=== PATIENT | female | born 1960 | race Caucasian/White ===

== ENCOUNTER 2020-02-27 15:30 | Emergency (ER) | payer OTHER, SELFPAY ==
[2020-02-27] VITALS (27 sets, daily range): BP systolic 120–144; BP diastolic 60–74; PULSE 80–94; RESP 12–24; TEMP 36.1; O2SAT 92–99
--- NOTE | 2020-02-27 15:56 | ED_ITS ---
HPI - Abdominal Pain <Gloria Jeffrey DO - Last Filed: 02/28/20 07:17> General Chief Complaint: Abdominal Pain Stated Complaint: JAUNDICE ABD PAIN Time Seen by Provider: 02/27/20 15:37 Source: patient and family Mode of arrival: Ambulatory Limitations: no limitations History of Present Illness HPI narrative: Patient is a 59-year-old female presents distending abdomen and jaundice. She does drink alcohol nightly at least 4-5 shots and a few beers according to her . He says that the yellowing color has been progressively getting worse over the last 1 week. He says that abdomen progressively distending over longer than that but seems bigger today. She denies any pain nausea vomiting. Her last drink was evening. She states her bowel movements have not been normal but does not really describe they are denies diarrhea or constipation. MD complaint: abdominal pain Onset (ago): week(s) Pain Consistency: constant Related Data Home Medications Medication Instructions Recorded Confirmed No Known Home Medications 02/27/20 02/27/20 Allergies Allergy/AdvReac Type Severity Reaction Status Date / Time No Known Drug Allergies Allergy Unverified 02/27/20 13:50 Review of Systems <Gloria Jeffrey DO - Last Filed: 02/28/20 07:17> Review of Systems Narrative: GENERAL: Denies chills, fatigue, malaise, fever, sweats, travel HEENT: Denies sinus pain, ear pain, sore throat, difficulty swallowing, neck pain RESPIRATORY: Denies dyspnea, cough, wheezing, hemoptysis, sputum. CARDIOVASCULAR: Denies chest pain, palpitations, orthopnea, edema GASTROINTESTINAL: See HPI : Denies dysuria, frequency, incontinence, hematuria, urinary retention, flank pain. MUSCULOSKELETAL: Denies weakness, joint pain, or bony pain SKIN: No rash, no erythema, no pruritus NEUROLOGIC: Denies weakness, dizziness, headache, numbness, change in speech, confusion PSYCHIATRIC: No concerning psychosocial issues. 12 point review of systems is negative except for those stated above and HPI Patient History <Gloria Jeffrey DO - Last Filed: 02/28/20 07:17> Medical History Alcohol use (Chronic) Ascites (Acute) Chicken pox (Acute) Measles (Acute) Mumps (Acute) Painless jaundice (Acute) Social History marital status: pets and animals: Yes education level: high school Smoking Status: Former smoker during the past year weight has: decreased > 10 lbs Smoking Status: Former smoker Exam <Gloria Jeffrey DO - Last Filed: 02/28/20 07:17> Initial Vital Signs Initial Vital Signs: Vital Signs Temperature 96.9 F L 02/27/20 15:35 Pulse Rate 85 02/27/20 15:35 Respiratory Rate 22 02/27/20 15:35 Blood Pressure 144/70 H 02/27/20 15:35 Pulse Oximetry 97 02/27/20 15:35 GENERAL: Jaundice well-appearing female and in no acute distress. HEENT: Head atraumatic,EOMI, pupils reactive, icterus, face symmetric, moist mucous membranes CARDIOVASCULAR: Regular rate and rhythm without murmurs, rubs or gallops. RESPIRATORY: Breath sounds equal bilaterally, no wheezes rales or rhonchi. ABDOMEN: Soft, distended, positive fluid wave nontender positive bowel sounds EXTREMITIES: Normal range of motion, no clubbing or edema. Neurovascularly intact NEUROLOGICAL: Alert and oriented x4.Normal gait and speech. SKIN: Warm, dry, no laceration, no petechiae, no rashes or lesions. <Tom Villatoro MD - Last Filed: 02/28/20 04:59> Initial Vital Signs Initial Vital Signs: Vital Signs Temperature 96.9 F L 02/27/20 15:35 Pulse Rate 85 02/27/20 15:35 Respiratory Rate 22 02/27/20 15:35 Blood Pressure 144/70 H 02/27/20 15:35 Pulse Oximetry 97 02/27/20 15:35 Course <Gloria Jeffrey DO - Last Filed: 02/28/20 07:17> Orders Ordered: Discontinued Medications Sodium Chloride (Normal Saline 0.9%) 1,000 mls @ 100 mls/hr IV CONT TRINA Last Infusion: 02/28/20 04:07 Dose: 0 mls/hr Documented by: Infusion: 02/27/20 21:18 Dose: 100 mls/hr Documented by: Infusion: 02/27/20 20:35 Dose: 0 mls/hr Documented by: Infusion: 02/27/20 17:50 Dose: 100 mls/hr Documented by: Admin: 02/27/20 17:26 Dose: 100 mls/hr Documented by: PRIYA Potassium Chloride 40 meq/ (Sodium Chloride) 520 mls @ 130 mls/hr IV NOW ONE Stop: 02/27/20 20:58 Last Infusion: 02/27/20 22:14 Dose: 0 mls/hr Documented by: RACHEL Cosigned by: HILARY Infusion: 02/27/20 21:18 Dose: 130 mls/hr Documented by: PRIYA Cosigned by: RACHEL Infusion: 02/27/20 20:41 Dose: 0 mls/hr Documented by: RACHEL Cosakila by: RAJANI Infusion: 02/27/20 17:49 Dose: 130 mls/hr Documented by: PRIYA Cosigned by: RACHEL Admin: 02/27/20 17:27 Dose: 130 mls/hr Documented by: PRIYA Cosigned by: HILARY Vital Signs Vital signs: Vital Signs - 8 hr 02/27/20 23:30 02/28/20 00:07 02/28/20 00:30 Pulse Rate 81 79 Respiratory Rate 16 27 H 17 Blood Pressure 123/66 Pulse Oximetry 02/28/20 01:00 02/28/20 01:30 02/28/20 02:00 Pulse Rate 77 77 81 Respiratory Rate 16 16 21 Blood Pressure Pulse Oximetry 02/28/20 02:38 02/28/20 03:00 02/28/20 03:30 Pulse Rate 85 81 79 Respiratory Rate 24 18 17 Blood Pressure 141/69 H Pulse Oximetry 90 L 02/28/20 04:00 02/28/20 04:30 Pulse Rate 82 80 Respiratory Rate 20 19 Blood Pressure Pulse Oximetry <Tom Villatoro MD - Last Filed: 02/28/20 04:59> Course Course Narrative: Time 4:39 a.m.. No new events since sign out for patient to be transferred to [address], blood cultures completed and holding on antibiotics as requested by receiving Hospital. Spoke with with patient and family for update. EMS here now. Orders Ordered: Discontinued Medications Sodium Chloride (Normal Saline 0.9%) 1,000 mls @ 100 mls/hr IV CONT TRINA Last Infusion: 02/28/20 04:07 Dose: 0 mls/hr Documented by: Infusion: 02/27/20 21:18 Dose: 100 mls/hr Documented by: Infusion: 02/27/20 20:35 Dose: 0 mls/hr Documented by: Infusion: 02/27/20 17:50 Dose: 100 mls/hr Documented by: Admin: 02/27/20 17:26 Dose: 100 mls/hr Documented by: PRIYA Potassium Chloride 40 meq/ (Sodium Chloride) 520 mls @ 130 mls/hr IV NOW ONE Stop: 02/27/20 20:58 Last Infusion: 02/27/20 22:14 Dose: 0 mls/hr Documented by: RACHEL Cosigned by: HILARY Infusion: 02/27/20 21:18 Dose: 130 mls/hr Documented by: PRIYA Cosigned by: RACHEL Infusion: 02/27/20 20:41 Dose: 0 mls/hr Documented by: RACHEL Cosigned by: RAJANI Infusion: 02/27/20 17:49 Dose: 130 mls/hr Documented by: PRIYA Cosigned by: RACHEL Admin: 02/27/20 17:27 Dose: 130 mls/hr Documented by: PRIYA Cosigned by: RMARTIN Vital Signs Vital signs: Vital Signs - 8 hr 02/27/20 23:30 02/28/20 00:07 02/28/20 00:30 Pulse Rate 81 79 Respiratory Rate 16 27 H 17 Blood Pressure 123/66 Pulse Oximetry 02/28/20 01:00 02/28/20 01:30 02/28/20 02:00 Pulse Rate 77 77 81 Respiratory Rate 16 16 21 Blood Pressure Pulse Oximetry 02/28/20 02:38 02/28/20 03:00 02/28/20 03:30 Pulse Rate 85 81 79 Respiratory Rate 24 18 17 Blood Pressure 141/69 H Pulse Oximetry 90 L 02/28/20 04:00 02/28/20 04:30 Pulse Rate 82 80 Respiratory Rate 20 19 Blood Pressure Pulse Oximetry MDM - Abdominal Pain <Gloria Jeffery DO - Last Filed: 02/28/20 07:17> Lab Data Attestation: I reviewed the patient's lab results. Lab results narrative: Labs were ordered as an outpatient and are not being carried over into this chart but are in [facility] Sodium 114, potassium 2.9, chloride 78, carbon dioxide 25, BUN 33, creatinine 2.2 to, glucose 110, hemoglobin A1c 4.2, lactate 2.8, calcium 9.2, total bilirubin 23.9, AST 162, ALT, 78, alk phos 278, ammonia 31, total protein 7.1, albumin 3.3, globulin 3.8, CA 19-9 pending Result diagrams: 02/27/20 15:07 02/27/20 20:55 Labs: Lab Results 02/27/20 02/27/20 02/27/20 Range/Units 15:07 15:46 15:46 WBC 20.0 H (4.5-11.0) X10^3/uL RBC 2.95 L (4.0-5.2) X10^6/uL Hgb 12.0 (12.0-16.0) g/dL Hct 33.7 L (36-46) % MCV 114.2 H (80-100) fL MCH 40.6 H (26-34) PG MCHC 35.6 (30-36) % RDW 15.3 H (11.6-14.8) % Plt Count 204 (150-400) X10^3/uL Neut % (Auto) 86.6 H (50-75) % Lymph % (Auto) 8.9 L (25-40) % Antelope % (Auto) 4.2 (3-14) % Eos % (Auto) 0.1 L (2-4) % Baso % (Auto) 0.2 (0-2) % Neut # (Auto) 22102 H (2345-9115) /uL Lymph # (Auto) 1800 (3133-8959) /uL Antelope # (Auto) 800 (0-900) /uL Eos # (Auto) 0 (0-450) /uL Baso # (Auto) 0 (0-100) /uL RBC Morphology Not Reportable Macrocytosis 3+ H Sodium (137-145) mmol/L Potassium (3.4-5.1) mmol/L Chloride (98-107) mmol/L Carbon Dioxide (22-32) mmol/L BUN (7-17) mg/dL Creatinine (0.52-1.04) mg/dL Estimated GFR (>60) mL/min BUN/Creatinine Ratio (6-22) Glucose (70-100) mg/dL Lactate 2.8 H (0.7-2.1) mmol/L Calcium (8.4-10.2) mg/dL Total Bilirubin (0.2-1.3) mg/dL AST (14-36) IU/L ALT (<35) IU/L Alkaline Phosphatase (38-126) U/L Total Protein (6.3-8.2) g/dL Albumin (3.5-5.0) g/dL Globulin (1.7-4.1) g/dL Albumin/Globulin Ratio (1.0-2.8) Ethyl Alcohol ( - 10) mg/dL COVID-19 PCR (Negative) Blood Type A Positive Antibody Screen Negative 02/27/20 02/27/20 02/27/20 Range/Units 17:35 18:18 18:18 WBC (4.5-11.0) X10^3/uL RBC (4.0-5.2) X10^6/uL Hgb (12.0-16.0) g/dL Hct (36-46) % MCV (80-100) fL MCH (26-34) PG MCHC (30-36) % RDW (11.6-14.8) % Plt Count (150-400) X10^3/uL Neut % (Auto) (50-75) % Lymph % (Auto) (25-40) % Antelope % (Auto) (3-14) % Eos % (Auto) (2-4) % Baso % (Auto) (0-2) % Neut # (Auto) (3670-2898) /uL Lymph # (Auto) (6609-5500) /uL Antelope # (Auto) (0-900) /uL Eos # (Auto) (0-450) /uL Baso # (Auto) (0-100) /uL RBC Morphology Macrocytosis Sodium 112 L* (137-145) mmol/L Potassium 3.0 L (3.4-5.1) mmol/L Chloride 78 L (98-107) mmol/L Carbon Dioxide 24 (22-32) mmol/L BUN 33 H (7-17) mg/dL Creatinine 2.16 H (0.52-1.04) mg/dL Estimated GFR 23.4 L (>60) mL/min BUN/Creatinine Ratio 15.3 (6-22) Glucose 107 H (70-100) mg/dL Lactate 2.4 H (0.7-2.1) mmol/L Calcium 8.7 (8.4-10.2) mg/dL Total Bilirubin 22.4 H (0.2-1.3) mg/dL AST 141 H (14-36) IU/L ALT 70 H (<35) IU/L Alkaline Phosphatase 249 H (38-126) U/L Total Protein 6.3 (6.3-8.2) g/dL Albumin 3.0 L (3.5-5.0) g/dL Globulin 3.3 (1.7-4.1) g/dL Albumin/Globulin Ratio 0.9 L (1.0-2.8) Ethyl Alcohol ( - 10) mg/dL COVID-19 PCR Negative (Negative) Blood Type Antibody Screen 02/27/20 02/27/20 02/27/20 Range/Units 18:18 20:55 20:55 WBC (4.5-11.0) X10^3/uL RBC (4.0-5.2) X10^6/uL Hgb (12.0-16.0) g/dL Hct (36-46) % MCV (80-100) fL MCH (26-34) PG MCHC (30-36) % RDW (11.6-14.8) % Plt Count (150-400) X10^3/uL Neut % (Auto) (50-75) % Lymph % (Auto) (25-40) % Antelope % (Auto) (3-14) % Eos % (Auto) (2-4) % Baso % (Auto) (0-2) % Neut # (Auto) (1435-8144) /uL Lymph # (Auto) (4463-3717) /uL Antelope # (Auto) (0-900) /uL Eos # (Auto) (0-450) /uL Baso # (Auto) (0-100) /uL RBC Morphology Macrocytosis Sodium 114 L* (137-145) mmol/L Potassium 3.9 (3.4-5.1) mmol/L Chloride 81 L (98-107) mmol/L Carbon Dioxide 23 (22-32) mmol/L BUN (7-17) mg/dL Creatinine (0.52-1.04) mg/dL Estimated GFR (>60) mL/min BUN/Creatinine Ratio (6-22) Glucose (70-100) mg/dL Lactate (0.7-2.1) mmol/L Calcium (8.4-10.2) mg/dL Total Bilirubin (0.2-1.3) mg/dL AST (14-36) IU/L ALT (<35) IU/L Alkaline Phosphatase (38-126) U/L Total Protein (6.3-8.2) g/dL Albumin (3.5-5.0) g/dL Globulin (1.7-4.1) g/dL Albumin/Globulin Ratio (1.0-2.8) Ethyl Alcohol < 10 < 10 ( - 10) mg/dL COVID-19 PCR (Negative) Blood Type Antibody Screen Imaging Data CT scan - abdomen/pelvis: Radiologist's Impression: PROCEDURE: CT ABDOMEN PELVIS WO CON INDICATIONS: distention and jaundice TECHNIQUE: After the administration of oral contrast, 5 mm thick sections acquired from the diaphragms to the symphysis. 5 mm coronal and sagittal reformats were performed. For radiation dose reduction, the following was used: automated exposure control, adjustment of mA and/or kV according to patient size. COMPARISON: None. FINDINGS: Image quality: Excellent. ABDOMEN: Lung bases: Lung bases are clear. Heart size is normal. Solid organs: Liver is prominently enlarged in size at 22 cm craniocaudad, and markedly fatty infiltrated. Gallbladder contains no visualized calcified gallstones.. Pancreas is normal in size. Spleen is normal in size. No adrenal nodules. Both kidneys are normal in size, without hydronephrosis or nephrolithiasis. Peritoneum and bowel: Bowel loops demonstrate normal wall thickness and caliber. No free air. There is mild ascites within all 4 quadrants best seen within the lower abdomen and pelvis. Nodes and vessels: No retroperitoneal or mesenteric adenopathy by size criteria. Aorta and inferior vena cava are normal in size. Miscellaneous: No ventral hernias. PELVIS: Genitourinary: Bladder wall thickness is normal. Miscellaneous: No inguinal hernias or adenopathy. Ascites is present to a aosc-nz-bkvrebal degree within the lower abdomen and pelvis. Bones: No suspicious bony lesions. No vertebral body compression fractures. IMPRESSION: Market hepatomegaly, market fatty infiltration throughout the liver. Fplh-bz-przbpjzi ascites best seen within the lower abdomen and pelvis. No mass lesions seen, hepatic insufficiency and portal hypertension appears present. Dictated by: Jean Pierre Dee M.D. on 02/27/2020 at 17:51 Approved by: Jean Pierre Dee M.D. on 02/27/2020 at 17:54 US - abdomen: Radiologist's Impression: PROCEDURE: US ABDOMEN LIMITED INDICATIONS: ASCITES TECHNIQUE: Real-time focused scanning was performed of the abdomen, with image documentation. COMPARISON: [facility], CT, CT ABDOMEN PELVIS WO CON, 02/27/2020, 17:14. FINDINGS: The liver is large at 19.5 cm craniocaudad and nodular in its margination with increased echotexture consistent with a combination of fatty infiltration and possible cirrhosis. Ascites is noted within the peritoneal space. Sludge is noted within the gallbladder lumen. No calculus is found. The bile ducts could not be well visualized nor could much of the rest of the retroperitoneum due to overlying bowel gas. IMPRESSION: Ascites, hepatic insufficiency is the likely cause, hepatomegaly, fatty infiltration likely combined with a degree of cirrhotic change is the presumed cause for the increased echotexture of the liver and its nodular margination. No sign of acute cholecystitis. Dictated by: Jean Pierre Dee M.D. on 02/27/2020 at 17:41 Approved by: Jean Pierre Dee M.D. on 02/27/2020 at 17:43 Chest x-ray: Radiologist's Impression: PROCEDURE: XR CHEST 1V INDICATIONS: elevated wbc with ascites TECHNIQUE: One view of the chest was acquired. COMPARISON: None. FINDINGS: Surgical changes and devices: None. Lungs and pleura: Lungs are clear. No pleural effusions or pneumothorax. The right hemidiaphragm is elevated, associated with hepatomegaly documented by CT scanning and ultrasound scanning earlier today. Mediastinum: Mediastinal contours appear normal. Heart size is normal. Bones and chest wall: No suspicious bony lesions. Overlying soft tissues appear unremarkable. IMPRESSION: No pneumonia found. Elevated right hemidiaphragm associated with prominent hepatomegaly seen on CT scanning earlier today. Dictated by: Jean Pierre Dee M.D. on 02/27/2020 at 19:17 Approved by: Jean Pierre Dee M.D. on 02/27/2020 at 19:18 ECG Data Attestation: I personally reviewed and interpreted this ECG as follows: Prior ECG tracings: not available for review Interpretation: Normal sinus rhythm with artifact rate 84 p.r. interval 178 QRS [address] changes MDM Narrative Medical decision making narrative: The patient is found to have severe hyponatremia with 114 however is asymptomatic thought to be chronic. She has new onset ascites with cirrhosis likely alcoholic cirrhosis. She does not have any signs of withdrawal at this time. Creatinine is also elevated 2.2 signs and symptoms consistent with hepatic renal syndrome. She is otherwise hemodynamically stable. She is afebrile but does have leukocytosis of 20, she has no abdominal pain at this time low suspicion for SBP. The patient is requiring higher level of care due to multiple issues needing GI, Nephrology and other resources. Patient is a [place] patient [address] apparently does have beds but waiting for an accepting physician and a bed to be available Signed out to Dr. Villatoro <Tom Villatoro MD - Last Filed: 02/28/20 04:59> Lab Data Labs: Lab Results 02/27/20 02/27/20 02/27/20 Range/Units 15:07 15:46 15:46 WBC 20.0 H (4.5-11.0) X10^3/uL RBC 2.95 L (4.0-5.2) X10^6/uL Hgb 12.0 (12.0-16.0) g/dL Hct 33.7 L (36-46) % MCV 114.2 H (80-100) fL MCH 40.6 H (26-34) PG MCHC 35.6 (30-36) % RDW 15.3 H (11.6-14.8) % Plt Count 204 (150-400) X10^3/uL Neut % (Auto) 86.6 H (50-75) % Lymph % (Auto) 8.9 L (25-40) % Antelope % (Auto) 4.2 (3-14) % Eos % (Auto) 0.1 L (2-4) % Baso % (Auto) 0.2 (0-2) % Neut # (Auto) 06907 H (4934-6827) /uL Lymph # (Auto) 1800 (3953-9954) /uL Antelope # (Auto) 800 (0-900) /uL Eos # (Auto) 0 (0-450) /uL Baso # (Auto) 0 (0-100) /uL RBC Morphology Not Reportable Macrocytosis 3+ H Sodium (137-145) mmol/L Potassium (3.4-5.1) mmol/L Chloride (98-107) mmol/L Carbon Dioxide (22-32) mmol/L BUN (7-17) mg/dL Creatinine (0.52-1.04) mg/dL Estimated GFR (>60) mL/min BUN/Creatinine Ratio (6-22) Glucose (70-100) mg/dL Lactate 2.8 H (0.7-2.1) mmol/L Calcium (8.4-10.2) mg/dL Total Bilirubin (0.2-1.3) mg/dL AST (14-36) IU/L ALT (<35) IU/L Alkaline Phosphatase (38-126) U/L Total Protein (6.3-8.2) g/dL Albumin (3.5-5.0) g/dL Globulin (1.7-4.1) g/dL Albumin/Globulin Ratio (1.0-2.8) Ethyl Alcohol ( - 10) mg/dL COVID-19 PCR (Negative) Blood Type A Positive Antibody Screen Negative 02/27/20 02/27/20 02/27/20 Range/Units 17:35 18:18 18:18 WBC (4.5-11.0) X10^3/uL RBC (4.0-5.2) X10^6/uL Hgb (12.0-16.0) g/dL Hct (36-46) % MCV (80-100) fL MCH (26-34) PG MCHC (30-36) % RDW (11.6-14.8) % Plt Count (150-400) X10^3/uL Neut % (Auto) (50-75) % Lymph % (Auto) (25-40) % Antelope % (Auto) (3-14) % Eos % (Auto) (2-4) % Baso % (Auto) (0-2) % Neut # (Auto) (9491-8683) /uL Lymph # (Auto) (2136-8582) /uL Antelope # (Auto) (0-900) /uL Eos # (Auto) (0-450) /uL Baso # (Auto) (0-100) /uL RBC Morphology Macrocytosis Sodium 112 L* (137-145) mmol/L Potassium 3.0 L (3.4-5.1) mmol/L Chloride 78 L (98-107) mmol/L Carbon Dioxide 24 (22-32) mmol/L BUN 33 H (7-17) mg/dL Creatinine 2.16 H (0.52-1.04) mg/dL Estimated GFR 23.4 L (>60) mL/min BUN/Creatinine Ratio 15.3 (6-22) Glucose 107 H (70-100) mg/dL Lactate 2.4 H (0.7-2.1) mmol/L Calcium 8.7 (8.4-10.2) mg/dL Total Bilirubin 22.4 H (0.2-1.3) mg/dL AST 141 H (14-36) IU/L ALT 70 H (<35) IU/L Alkaline Phosphatase 249 H (38-126) U/L Total Protein 6.3 (6.3-8.2) g/dL Albumin 3.0 L (3.5-5.0) g/dL Globulin 3.3 (1.7-4.1) g/dL Albumin/Globulin Ratio 0.9 L (1.0-2.8) Ethyl Alcohol ( - 10) mg/dL COVID-19 PCR Negative (Negative) Blood Type Antibody Screen 02/27/20 02/27/20 02/27/20 Range/Units 18:18 20:55 20:55 WBC (4.5-11.0) X10^3/uL RBC (4.0-5.2) X10^6/uL Hgb (12.0-16.0) g/dL Hct (36-46) % MCV (80-100) fL MCH (26-34) PG MCHC (30-36) % RDW (11.6-14.8) % Plt Count (150-400) X10^3/uL Neut % (Auto) (50-75) % Lymph % (Auto) (25-40) % Antelope % (Auto) (3-14) % Eos % (Auto) (2-4) % Baso % (Auto) (0-2) % Neut # (Auto) (0916-5014) /uL Lymph # (Auto) (0302-5974) /uL Antelope # (Auto) (0-900) /uL Eos # (Auto) (0-450) /uL Baso # (Auto) (0-100) /uL RBC Morphology Macrocytosis Sodium 114 L* (137-145) mmol/L Potassium 3.9 (3.4-5.1) mmol/L Chloride 81 L (98-107) mmol/L Carbon Dioxide 23 (22-32) mmol/L BUN (7-17) mg/dL Creatinine (0.52-1.04) mg/dL Estimated GFR (>60) mL/min BUN/Creatinine Ratio (6-22) Glucose (70-100) mg/dL Lactate (0.7-2.1) mmol/L Calcium (8.4-10.2) mg/dL Total Bilirubin (0.2-1.3) mg/dL AST (14-36) IU/L ALT (<35) IU/L Alkaline Phosphatase (38-126) U/L Total Protein (6.3-8.2) g/dL Albumin (3.5-5.0) g/dL Globulin (1.7-4.1) g/dL Albumin/Globulin Ratio (1.0-2.8) Ethyl Alcohol < 10 < 10 ( - 10) mg/dL COVID-19 PCR (Negative) Blood Type Antibody Screen Discharge Plan Departure Patient Disposition: [facility] Clinical Impression: Hepatorenal syndrome Alcoholic cirrhosis Qualifiers: Ascites presence: unspecified Qualified Code(s): K70.30 - Alcoholic cirrhosis of liver without ascites Discharge Date/Time: 02/28/20 05:00 Prescriptions: No Action No Known Home Medications RF: 0 Referrals: Taye Monson MD [Primary Care Provider] -
[2020-02-27 16:08] LABS: Add Manual Diff / Slide Review NO; Basophils Absolute Auto 0 /uL (0-100); Basophils Percent Auto 0.2 % (0-2); Eosinophils Absolute Auto 0 /uL (0-450); Eosinophils Percent Auto 0.1 % (2-4); Hematocrit 33.7 % (36-46); Lymphocytes Absolute Auto 1800 /uL (1100-4500); Lymphocytes Percent Auto 8.9 % (25-40); Mean Corpuscular HGB Conc 35.6 % (30-36); Mean Corpuscular Hemoglobin 40.6 PG (26-34); Mean Corpuscular Volume 114.2 fL (80-100); Monocytes Absolute Auto 800 /uL (0-900); Monocytes Percent Auto 4.2 % (3-14); Neutrophils Absolute Auto 17400 /uL (1500-7000); Neutrophils Percent Auto 86.6 % (50-75); Platelet Count 204 X10^3/uL (150-400); Red Blood Cell Count 2.95 X10^6/uL (4.0-5.2); Red Cell Distribution Width 15.3 % (11.6-14.8)
--- NOTE | 2020-02-27 16:16 | DI.US.S_ITS ---
PROCEDURE: US ABDOMEN LIMITED INDICATIONS: ASCITES TECHNIQUE: Real-time focused scanning was performed of the abdomen, with image documentation. COMPARISON: [facility], CT, CT ABDOMEN PELVIS WO CON, 02/27/2020, 17:14. FINDINGS: The liver is large at 19.5 cm craniocaudad and nodular in its margination with increased echotexture consistent with a combination of fatty infiltration and possible cirrhosis. Ascites is noted within the peritoneal space. Sludge is noted within the gallbladder lumen. No calculus is found. The bile ducts could not be well visualized nor could much of the rest of the retroperitoneum due to overlying bowel gas. IMPRESSION: Ascites, hepatic insufficiency is the likely cause, hepatomegaly, fatty infiltration likely combined with a degree of cirrhotic change is the presumed cause for the increased echotexture of the liver and its nodular margination. No sign of acute cholecystitis. Dictated by: Jean Pierre Dee M.D. on 02/27/2020 at 17:41 Approved by: Jean Pierre Dee M.D. on 02/27/2020 at 17:43
[2020-02-27 16:17] LABS: Lactate (Lactic Acid) 2.8 mmol/L (0.7-2.1)
[2020-02-27 16:21] LABS: Macrocytosis 3+
[2020-02-27] MEDS: SODIUM CHLORIDE 0.9% 1,000 ML 100 ML IV (17:26)
[2020-02-27] MEDS: POTASSIUM CHLORIDE 40 MEQ in SODIUM CHLORIDE 0.9% 500 ML 130 ML IV (17:27)
[2020-02-27 17:52] LABS: Reflexed Lactate in 2 Hours Y
[2020-02-27 18:01] LABS: COVID19 -Nasal RAPID Negative (Negative)
--- NOTE | 2020-02-27 18:28 | DI.RAD.S_ITS ---
PROCEDURE: XR CHEST 1V INDICATIONS: elevated wbc with ascites TECHNIQUE: One view of the chest was acquired. COMPARISON: None. FINDINGS: Surgical changes and devices: None. Lungs and pleura: Lungs are clear. No pleural effusions or pneumothorax. The right hemidiaphragm is elevated, associated with hepatomegaly documented by CT scanning and ultrasound scanning earlier today. Mediastinum: Mediastinal contours appear normal. Heart size is normal. Bones and chest wall: No suspicious bony lesions. Overlying soft tissues appear unremarkable. IMPRESSION: No pneumonia found. Elevated right hemidiaphragm associated with prominent hepatomegaly seen on CT scanning earlier today. Dictated by: Jean Pierre Dee M.D. on 02/27/2020 at 19:17 Approved by: Jean Pierre Dee M.D. on 02/27/2020 at 19:18
[2020-02-27 18:37] LABS: Alanine Aminotransferase 70 IU/L (<35); Albumin Globulin Ratio 0.9 (1.0-2.8); Alkaline Phosphatase 249 U/L (38-126); Aspartate Aminotransferase 141 IU/L (14-36); BUN Creatinine Ratio 15.3 (6-22); Bilirubin Total 22.4 mg/dL (0.2-1.3); Blood Urea Nitrogen 33 mg/dL (7-17); Calcium 8.7 mg/dL (8.4-10.2); Carbon Dioxide 24 mmol/L (22-32); Chloride 78 mmol/L (98-107); Estimated Glomerular Filt Rate 23.4 mL/min (>60); Globulin 3.3 g/dL (1.7-4.1); Glucose 107 mg/dL (70-100); HEMOLYSIS < 15 (0-50); Lactate 2HR (Lactic Acid Rflx) 2.4 mmol/L (0.7-2.1); Total Protein 6.3 g/dL (6.3-8.2)
[2020-02-27 18:51] LABS: Sodium 112 mmol/L (137-145)
[2020-02-27 18:59] LABS: Ethanol (ETOH) < 10 mg/dL
--- NOTE | 2020-02-27 19:15 | PC.NURSE ---
Pt taken to the bathroom to pee, hat in garbage.
--- NOTE | 2020-02-27 19:17 | PC.NURSE ---
Hat in garbage, no urine sample obtained
[2020-02-27 21:19] LABS: Ethanol (ETOH) < 10 mg/dL
[2020-02-27 21:29] LABS: Carbon Dioxide 23 mmol/L (22-32); Chloride 81 mmol/L (98-107); HEMOLYSIS 18 (0-50); Potassium 3.9 mmol/L (3.4-5.1)
[2020-02-27 21:34] LABS: Sodium 114 mmol/L (137-145)
[2020-02-28] VITALS (10 sets, daily range): BP systolic 141; BP diastolic 69; PULSE 77–85; RESP 16–27; O2SAT 90
== END 2020-02-28 05:00 | disposition short-term general hospital (02) ==
PROVIDERS: Emergency Medicine; Emergency Provider Emergency Medicine; PCP Family Medicine
DX: K76.7 Hepatorenal syndrome (principal); K70.30 Alcoholic cirrhosis of liver without ascites; D72.829 Elevated white blood cell count, unspecified; R18.8 Other ascites
CPT/HCPCS: 36415; 71045; 74176; 76705; 80051; 80053; 80320; 82140; 83036; 83605; 85025; 85610; 85730; 86301; 86803; 86850; 86900; 86901; 87040; 87635; 93005; 93010; 96360; 96361; 99285; J3480

== ENCOUNTER 2024-08-22 12:13 | Emergency (ER) | payer SELFPAY ==
[2024-08-22] VITALS (23 sets, daily range): BP systolic 134–186; BP diastolic 63–108; PULSE 81–100; RESP 14–26; TEMP 36.8; O2SAT 94–98; BMI 24.5
--- NOTE | 2024-08-22 12:31 | PC.NURSE ---
Called patient for triage but they were in the restroom.
--- NOTE | 2024-08-22 12:57 | EKG_ITS ---
[address] [address] Test Date: 2024-08-22 Pat Name: Georgette Mckeon Department: Room: Gender: Female Dispatch Lead: CHELSEA : 1960 Requested By: Order Number: [id number] Reading MD: Artur Hassan MD Measurements Intervals [place] Rate: 99 P: -3 OK: 138 QRS: 12 QRSD: 68 T: 28 QT: 384 QTc: 492 Interpretive Statements Normal sinus rhythm Cannot rule out Anterior infarct , age undetermined Electronically Signed On 08-24-2024 8:22:50 PDT by Artur Hassan MD
[2024-08-22 13:38] LABS: Add Manual Diff / Slide Review NO; Basophils Absolute Auto 100 /uL (0-100); Basophils Percent Auto 1.1 % (0-2); Eosinophils Absolute Auto 0 /uL (0-450); Eosinophils Percent Auto 0.4 % (2-4); Hematocrit 39.5 % (36-46); Hemoglobin 13.7 g/dL (12.0-16.0); Lymphocytes Absolute Auto 1100 /uL (1100-4500); Lymphocytes Percent Auto 18.2 % (25-40); Mean Corpuscular HGB Conc 34.7 % (30-36); Mean Corpuscular Hemoglobin 34.1 PG (26-34); Mean Corpuscular Volume 98.4 fL (80-100); Monocytes Absolute Auto 400 /uL (0-900); Monocytes Percent Auto 7.3 % (3-14); Neutrophils Absolute Auto 4500 /uL (1500-7000); Platelet Count 59 X10^3/uL (150-400); Red Blood Cell Count 4.02 X10^6/uL (4.0-5.2); Red Cell Distribution Width 14.7 % (11.6-14.8); White Blood Cell Count 6.1 X10^3/uL (4.5-11.0)
[2024-08-22 13:45] LABS: Alanine Aminotransferase 36 IU/L (<35); Albumin 4.6 g/dL (3.5-5.0); Albumin Globulin Ratio 1.1 (1.0-2.8); Alkaline Phosphatase 151 U/L (38-126); Aspartate Aminotransferase 91 IU/L (14-36); Bilirubin Total 9.9 mg/dL (0.2-1.3); Blood Urea Nitrogen 9 mg/dL (7-17); Calcium 10.4 mg/dL (8.4-10.2); Carbon Dioxide 20 mmol/L (22-32); Chloride 103 mmol/L (98-107); Estimated Glomerular Filt Rate > 60 mL/min (>60); Globulin 4.1 g/dL (1.7-4.1); Glucose 101 mg/dL (80-110); HEMOLYSIS < 15 (0-50); Lipase 95 U/L (23-300); Potassium 3.8 mmol/L (3.4-5.1); Sodium 136 mmol/L (137-145); Total Protein 8.7 g/dL (6.3-8.2)
[2024-08-22 14:21] LABS: Amorphous Sediment Urine 1+; Bacteria Urine Few (2-10); Mucus Urine 2+ (Negative); RBC Urine 1-5/HPF (0-5/HPF); Squamous Epithelial Cell Urine 5-10 /HPF (0-5/HPF); Transitional Epi Cells Urine 1-5/HPF (0-5/HPF); Urine Volume 10mL (spun); WBC Urine 5-10/HPF (0-5/HPF)
[2024-08-22 14:22] LABS: Culture Indicated Urine Specimen Cultured; Ictotest Urine Positive (Negative)
--- NOTE | 2024-08-22 14:35 | ED_ITS ---
HPI - Abdominal Pain <Tom Villatoro MD - Last Filed: 08/23/24 12:49> General Chief Complaint: Abdominal Pain Stated Complaint: Vomiting x3 dys, hernia Time Seen by Provider: 08/22/24 13:12 Source: patient Mode of arrival: Ambulatory History of Present Illness HPI narrative: Patient here with primary complaints of umbilical pain nausea and vomiting chills runny nose cough for the past 2 days. 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 Patient was seen here 5 years ago and transferred to [facility] and stayed there for paracentesis/hepatorenal syndrome. She does continue to drink. Last alcohol use was August 12. She did go to recent rehab in July. Patient has known history of reducible umbilical hernia. Patient in no distress at this time. No auditory or visual hallucinations. No seizures. No altered mental status. Related Data Home Medications Medication Instructions Recorded Confirmed No Known Home Medications 02/27/20 02/27/20 Allergies Allergy/AdvReac Type Severity Reaction Status Date / Time No Known Drug Allergies Allergy Unverified 02/27/20 13:50 Review of Systems <Tom Villatoro MD - Last Filed: 08/23/24 12:49> Review of Systems Narrative: GENERAL: Negative chills, fatigue, malaise, fever, sweats. HEENT: Negative sinus pain, ear pain, sore throat RESPIRATORY: Negative dyspnea, cough CARDIOVASCULAR: Negative chest pain, palpitations GASTROINTESTINAL: Negative vomiting, nausea, abdominal pain : Negative dysuria, frequency, hematuria MUSCULOSKELETAL: Negative muscle or bony pain SKIN: Negative rash, skin lesions NEUROLOGIC: Negative weakness, numbness ROS Unobtainable: All systems reviewed & are unremarkable except as noted in HPI and below Patient History <Tom Villatoro MD - Last Filed: 08/23/24 12:49> Medical History (Updated 08/22/24 @ 20:40 by Gaviota Anderson MD) Anxiety Alcohol use Ascites Painless jaundice Mumps (~1971) Measles (~1969) Chicken pox (~1967) Social History marital status: pets and animals: Yes education level: high school Smoking Status: Former smoker during the past year weight has: decreased > 10 lbs Smoking Status: Former smoker Exam <Tom Villatoro MD - Last Filed: 08/23/24 12:49> Narrative Exam Narrative: GENERAL: in no distress, not toxic not dyspneic HEAD: Normocephalic. EYES: Pupils equal round no icterus ENT: Mucous membranes moist. NECK: Trachea midline. CARDIOVASCULAR: Regular rate and rhythm RESPIRATORY: Clear to auscultation. Breath sounds equal bilaterally. No wheezes, rales, or rhonchi. GASTROINTESTINAL: Abdomen soft, mild right upper quadrant tenderness no peritoneal signs, bowel sounds are present. No guarding or rebound. Bowel sounds are positive/present, reproducible umbilical hernia, EXTREMITIES: No gross deformities. BACK: No flank tenderness. NEURO: AOx4. Clear speech SKIN: Warm and dry, no jaundice PSYCH: Not anxious, is cooperative Initial Vital Signs Initial Vital Signs: Vital Signs Temperature 98.2 F 08/22/24 12:43 Pulse Rate 100 H 08/22/24 12:43 Respiratory Rate 22 08/22/24 12:43 Blood Pressure 155/74 H 08/22/24 12:43 Pulse Oximetry 98 08/22/24 12:43 Oxygen Delivery Method Room Air 08/22/24 12:43 <Gaviota Anderson MD - Last Filed: 08/23/24 05:41> Initial Vital Signs Initial Vital Signs: Vital Signs Temperature 98.2 F 08/22/24 12:43 Pulse Rate 100 H 08/22/24 12:43 Respiratory Rate 22 08/22/24 12:43 Blood Pressure 155/74 H 08/22/24 12:43 Pulse Oximetry 98 08/22/24 12:43 Oxygen Delivery Method Room Air 08/22/24 12:43 Course <Tom Villatoro MD - Last Filed: 08/23/24 12:49> Orders Ordered: Discontinued Medications Hydromorphone HCl (Hydromorphone 1 Mg Inj) 1 mg IV NOW ONE Stop: 08/22/24 14:28 Last Admin: 08/22/24 14:36 Dose: 1 mg Documented By: UMANG Hydromorphone HCl (Hydromorphone 0.5 Mg Inj) 0.5 mg IV Q15MIN PRN PRN Reason: Pain, Last Admin: 08/23/24 06:45 Dose: 0.5 mg Documented By: Admin: 08/23/24 00:37 Dose: 0.5 mg Documented By: NICK Sodium Chloride (Normal Saline 0.9%) 500 mls @ 1,000 mls/hr IV BOLUS ONE Stop: 08/22/24 14:56 Last Infusion: 08/22/24 15:09 Dose: Infused Documented By: Admin: 08/22/24 14:36 Dose: 1,000 mls/hr Documented By: UMANG Ondansetron HCl (Ondansetron 4 Mg/2 Ml Inj) 4 mg IV NOW PRN PRN Reason: Nausea And Vomiting Last Admin: 08/23/24 06:45 Dose: 4 mg Documented By: Admin: 08/22/24 14:37 Dose: 4 mg Documented By: UMANG Ondansetron HCl (Ondansetron 4 Mg Odt) 4 mg PO NOW PRN PRN Reason: Nausea And Vomiting Ondansetron HCl (Ondansetron 4 Mg/2 Ml Inj) 4 mg IV NOW ONE Stop: 08/22/24 18:38 Last Admin: 08/22/24 18:44 Dose: 4 mg Documented By: UMANG Ondansetron HCl (Ondansetron 4 Mg/2 Ml Inj) 4 mg IV NOW ONE Stop: 08/23/24 02:45 Last Admin: 08/23/24 02:58 Dose: 4 mg Documented By: NICK Ondansetron HCl (Ondansetron 4 Mg/2 Ml Inj) 4 mg IV NOW ONE Stop: 08/23/24 06:43 Vital Signs Vital signs: Vital Signs - 8 hr 08/23/24 05:00 08/23/24 05:00 08/23/24 05:30 Temperature Pulse Rate 97 H Respiratory Rate 23 Blood Pressure 144/88 H 155/73 H Pulse Oximetry 95 Oxygen Delivery Method 08/23/24 05:30 08/23/24 06:00 08/23/24 06:35 Temperature Pulse Rate 93 H 92 H 98 H Respiratory Rate 17 22 17 Blood Pressure Pulse Oximetry 94 96 98 Oxygen Delivery Method Room Air 08/23/24 06:35 08/23/24 07:30 Temperature 98.2 F Pulse Rate Respiratory Rate Blood Pressure 147/81 H Pulse Oximetry Oxygen Delivery Method <Gaviota Anderson MD - Last Filed: 08/23/24 05:41> Orders Ordered: Discontinued Medications Hydromorphone HCl (Hydromorphone 1 Mg Inj) 1 mg IV NOW ONE Stop: 08/22/24 14:28 Last Admin: 08/22/24 14:36 Dose: 1 mg Documented By: UMANG Hydromorphone HCl (Hydromorphone 0.5 Mg Inj) 0.5 mg IV Q15MIN PRN PRN Reason: Pain, Last Admin: 08/23/24 06:45 Dose: 0.5 mg Documented By: Admin: 08/23/24 00:37 Dose: 0.5 mg Documented By: NICK Sodium Chloride (Normal Saline 0.9%) 500 mls @ 1,000 mls/hr IV BOLUS ONE Stop: 08/22/24 14:56 Last Infusion: 08/22/24 15:09 Dose: Infused Documented By: Admin: 08/22/24 14:36 Dose: 1,000 mls/hr Documented By: UMANG Ondansetron HCl (Ondansetron 4 Mg/2 Ml Inj) 4 mg IV NOW PRN PRN Reason: Nausea And Vomiting Last Admin: 08/23/24 06:45 Dose: 4 mg Documented By: Admin: 08/22/24 14:37 Dose: 4 mg Documented By: UMANG Ondansetron HCl (Ondansetron 4 Mg Odt) 4 mg PO NOW PRN PRN Reason: Nausea And Vomiting Ondansetron HCl (Ondansetron 4 Mg/2 Ml Inj) 4 mg IV NOW ONE Stop: 08/22/24 18:38 Last Admin: 08/22/24 18:44 Dose: 4 mg Documented By: UMANG Ondansetron HCl (Ondansetron 4 Mg/2 Ml Inj) 4 mg IV NOW ONE Stop: 08/23/24 02:45 Last Admin: 08/23/24 02:58 Dose: 4 mg Documented By: NICK Ondansetron HCl (Ondansetron 4 Mg/2 Ml Inj) 4 mg IV NOW ONE Stop: 08/23/24 06:43 Vital Signs Vital signs: Vital Signs - 8 hr 08/23/24 05:00 08/23/24 05:00 08/23/24 05:30 Temperature Pulse Rate 97 H Respiratory Rate 23 Blood Pressure 144/88 H 155/73 H Pulse Oximetry 95 Oxygen Delivery Method 08/23/24 05:30 08/23/24 06:00 08/23/24 06:35 Temperature Pulse Rate 93 H 92 H 98 H Respiratory Rate 17 22 17 Blood Pressure Pulse Oximetry 94 96 98 Oxygen Delivery Method Room Air 08/23/24 06:35 08/23/24 07:30 Temperature 98.2 F Pulse Rate Respiratory Rate Blood Pressure 147/81 H Pulse Oximetry Oxygen Delivery Method MDM - Abdominal Pain <Tom Villatoro MD - Last Filed: 08/23/24 12:49> Lab Data 08/22/24 13:25 08/22/24 13:25 Labs: Lab Results 08/22/24 08/22/24 08/22/24 Range/Units 13:14 13:25 15:04 WBC 6.1 (4.5-11.0) X10^3/uL RBC 4.02 (4.0-5.2) X10^6/uL Hgb 13.7 (12.0-16.0) g/dL Hct 39.5 (36-46) % MCV 98.4 (80-100) fL MCH 34.1 H (26-34) PG MCHC 34.7 (30-36) % RDW 14.7 (11.6-14.8) % Plt Count 59 L (150-400) X10^3/uL Neut % (Auto) 73.0 (50-75) % Lymph % (Auto) 18.2 L (25-40) % [place] % (Auto) 7.3 (3-14) % Eos % (Auto) 0.4 L (2-4) % Baso % (Auto) 1.1 (0-2) % Neut # (Auto) 4500 (8130-8413) /uL Lymph # (Auto) 1100 (1027-9406) /uL [place] # (Auto) 400 (0-900) /uL Eos # (Auto) 0 (0-450) /uL Baso # (Auto) 100 (0-100) /uL PT 19.3 H (9.4-12.5) SECONDS INR 1.7 H (0.9-1.3) APTT 52 H (25.1-36.5) SECONDS Sodium 136 L (137-145) mmol/L Potassium 3.8 (3.4-5.1) mmol/L Chloride 103 (98-107) mmol/L Carbon Dioxide 20 L (22-32) mmol/L BUN 9 (7-17) mg/dL Creatinine 0.82 (0.52-1.04) mg/dL Estimated GFR > 60 (>60) mL/min BUN/Creatinine Ratio 11.0 (6-22) Glucose 101 (80-110) mg/dL Lactate 1.4 (0.7-2.1) mmol/L Calcium 10.4 H (8.4-10.2) mg/dL Total Bilirubin 9.9 H (0.2-1.3) mg/dL AST 91 H (14-36) IU/L ALT 36 H (<35) IU/L Alkaline Phosphatase 151 H (38-126) U/L Total Protein 8.7 H (6.3-8.2) g/dL Albumin 4.6 (3.5-5.0) g/dL Globulin 4.1 (1.7-4.1) g/dL Albumin/Globulin Ratio 1.1 (1.0-2.8) Lipase 95 (23-300) U/L Procalcitonin 0.075 (<0.5) ng/mL Ur Bilirubin Confirm Positive H (Negative) Urine RBC 1-5/hpf (0-5/HPF) Urine WBC 5-10/hpf H (0-5/HPF) Ur Squamous Epith Cells 5-10 /hpf H (0-5/HPF) Ur Transition Epith Cell 1-5/hpf (0-5/HPF) Amorphous Sediment 1+ Urine Bacteria Few (2-10) H (None) Urine Mucus 2+ H (Negative) Ur Culture Indicated? Specimen cultured Vol Urine Centrifuged 10ml (spun) Ethyl Alcohol < 10 ( - 10) mg/dL Chlamy pneumoniae PCR Not detected (Not Detect) Adenovirus (PCR) Not detected (Not Detect) B. pertussis DNA (PCR) Not detected (Not Detect) B.parapertussis DNA PCR Not detected (Not Detecte) Coronavirus OC43 (PCR) Not detected (Not Detect) Coronavirus HKU1 (PCR) Not detected (Not Detect) Coronavirus 229E (PCR) Not detected (Not Detect) SARS-CoV-2 (PCR) Not detected (Not Detecte) Coronavirus NL63 (PCR) Not detected (Not Detect) Human Metapneumovir PCR Not detected (Not Detect) Influenza Type A (PCR) Not detected (Not Detect) Influenza Type B (PCR) Not detected (Not Detect) M. pneumoniae (PCR) Not detected (Not Detect) Parainfluenza 1 (PCR) Not detected (Not Detect) Parainfluenza 2 (PCR) Not detected (Not Detect) Parainfluenza 3 (PCR) Not detected (Not Detect) Parainfluenza 4 (PCR) Not detected (Not Detect) RSV (PCR) Not detected (Not Detect) Entero/Rhino (PCR) Not detected (Not Detect) Point of care testing: Urine Dip Bedside Urine Glucose Negative Bedside Urine Bilirubin + 1 Bedside Urine Ketone ++ 40 Urine Specific [place] 1.010 Bedside Urine Occult Blood ++ Bedside Urine pH 7.5 Bedside Urine Protein + 30 Bedside Urine Urobilinogen 2+ 4mg Bedside Urine Nitrite - Negative Bedside Urine Leukocytes +++ [address] chest abdomen pelvis: Radiologist's Impression: [place] [address] CT Scan Report Signed Patient: Georgette Mckeon MR#: [id number] : 1960 Acct:[id number] Age/Sex: 64 / F Date of Service: 08/22/24 Loc: ED Accession Number: [id number] Procedure: CT chest abd pel wo con Ordering Provider: Tom Villatoro MD PROCEDURE: CT CHEST ABD PEL WO CON INDICATIONS: sepsis TECHNIQUE: After the administration of oral contrast, 5 mm thick sections acquired from the lung apices to the symphysis pubis. 5 mm thick coronal and sagittal reformats acquired, with additional 7 mm coronal MIP reformats through the lungs. For radiation dose reduction, the following was used: automated exposure control, adjustment of mA and/or kV according to patient size. COMPARISON: [facility], CT, CT ABDOMEN PELVIS WO CON, 02/27/2020, 17:14. [facility], CR, XR CHEST 1V, 02/27/2020, 18:40. FINDINGS: Image quality: Diagnostic Lungs and pleura: 1.2 cm ground-glass nodule is seen in the left upper lung. No definite solid component. No dense airspace consolidation or pleural effusion. Partially solid and partially sclerotic glass nodule also seen in the right lateral lung (5/128) measuring up to 1.6 cm. Background emphysema. Mediastinum, heart, and esophagus: Mild distal esophageal wall thickening, nonspecific. Heart size is at the upper limit of normal. Coronary calcifications. No pathologic lymphadenopathy by size criteria. Chest wall and thyroid: Unremarkable Liver: Hepatic steatosis. Nodular contour. Trace perihepatic ascites Hepatomegaly at 20 cm. Solid organs are poorly evaluated without IV contrast Gallbladder and biliary system: Distended gallbladder with small gallstones. No pathologic biliary dilation. Pancreas: No ductal dilation. [id number] parenchymal atrophy. Spleen: Enlarged at 14 cm Adrenals: No discrete nodules Kidneys: No solid mass. No hydronephrosis. Vessels and lymph nodes: No abdominal aortic aneurysm. Atherosclerotic calcifications are present. No pathologic lymphadenopathy by size criteria. There is nonspecific edematous fat stranding throughout the retroperitoneum. Bowel and peritoneum: Overall liquid colonic contents and rectal contents. Colonic diverticulosis. No small bowel obstruction. Nondilated appendix. Edematous fat stranding is also seen in the right paracolic gutter. No drainable ascites or abscess. Body wall: Moderate fat and omentum containing umbilical hernia. Pelvis: Bladder is unremarkable. Reproductive organs are unremarkable on limited CT evaluation. Bones: No aggressive appearing osseous abnormality. IMPRESSION: Suspected proctocolitis, with liquid colonic contents and edema particularly surrounding the proximal colon. No small bowel obstruction. No drainable abscess or ascites. Nonspecific edema also extends throughout the retroperitoneum, without abscess. Distended gallbladder and small gallstones. Small partially solid and partially ground-glass nodule seen in both lungs, without dense airspace disease or pleural effusion. These may be infectious/inflammatory. Background emphysema. Given patient's presumed risk factors, consider 6-[address] Hepatosplenomegaly and nodular liver contour compatible with chronic liver disease. Consider HCC screening if clinically applicable. Trace perihepatic ascites. Other findings above on this noncontrast CT. Dictated by: Erik Nicholas M.D. on 08/22/2024 at 15:34 Approved by: Erik Nicholas M.D. on 08/22/2024 at 15:41 MDM Narrative Medical decision making narrative: Patient here with primary complaints of umbilical pain nausea and vomiting chills runny nose cough for the past 2 days. 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 Patient was seen here 5 years ago and transferred to [facility] and stayed there for paracentesis/hepatorenal syndrome. She does continue to drink. Last alcohol use was August 12. She did go to recent rehab in July. Patient has known history of reducible umbilical hernia. Patient in no distress at this time. No auditory or visual hallucinations. No seizures. No altered mental status. After history and exam, CBC CMP lipase urinalysis Dilaudid Zofran normal saline CT chest abdomen pelvis respiratory panel lactic acid procalcitonin PT INR PTT, request labs from last month at another facility MDM Medical records reviewed: February 27, 2020 ER visit here. Found to have alcoholic cirrhosis with similar lab concerns at that time including a bilirubin of 22.4, AST of 141 ALT of 70 and alk-phos of 249. Laboratory studies from outside hospital July 11 2024 normal liver enzymes Differential considered: Includes but not limited to ascites peritonitis appendicitis cholecystitis cholelithiasis viral gastroenteritis colitis incarcerated hernia strangulated hernia gastritis Lab Test results independently reviewed as above. Pertinent findings: WBC 6.1 hemoglobin 13.7 hematocrit 39.5 INR 1.7 sodium 136 AST 91 ALT 36 total bilirubin 9.9 alkaline phosphatase 151 alcohol negative procalcitonin 0.075 lipase 95 lactate 1.4 Independently reviewed EKG normal sinus rhythm rate 99 Imaging studies independently reviewed: CT chest abdomen pelvis distended gallbladder/cholelithiasis MRCP shows In the distal CBD, there is a questionable filling defect representing a tiny stone versus artifact. (Reference image 10/28) No ductal dilation however is seen.This exam is limited by motion and incomplete protocol. Consultations: Bed available at [facility] in [place] (no bed availalbity in any hospitals from [place] to [place]) Re-evaluations: 6:10 p.m.. Updated patient results. Waiting for ultrasound to evaluate gallbladder and liver. Pain is controlled. Discussion: 6:[address] Villatoro: Sign out to Dr. Anderson, review with General surgery after results as patient's liver enzymes are elevated compared to 1 month ago. It was normal 1 month ago. 64-year-old woman with a history of alcohol use disorder and liver failure. Presents with upper abdominal pain radiating through to her back. Prior episode most similar to this was in 2019, eventually transferred to [facility] where she spent 10 days with alcohol withdrawal symptoms, hepatorenal syndrome and it sounds like she had a paracentesis. I do not have records from this. She was discharged home with ?a bunch of medications? did not drive for 2 years and seemingly improved. She has not had any alcohol since July of this year. Labs today are concerning for bilirubin elevated at 9.9, AST at 91, ALT at 36 alk-phos at 1:51 a.m.. Comparison to hospitalization February of 2020, bilirubin at that time was 22.4 and AST ALT and alk-phos were all slightly higher than they are today. She is not having any confounding renal failure with today's events CT scan from today suggests possible proctocolitis no small bowel obstruction no drainable abscesses or ascites. Nonspecific edema extends through the retroperitoneum without abscess. Distended gallbladder and small gallstones. MRCP was obtained and there is a questionable filling deficit that may be a stone blocking the common bile duct but no significant ductal dilatation is appreciated. Patient is re-evaluated: She continues to have pain in the right upper quadrant radiating through to her back, she has been rehydrated but her nausea is returning. She is not having fevers, no leukocytosis and not showing signs of sepsis or secondary bacterial infection With concerns for choledocholithiasis and common duct obstruction, I believe transfer to a facility with ERCP capacity is going to be most appropriate. Have began looking for facilities as that is not going to be an option for [facility]. Findings, concerns, recommendations and the probability of transfer is reviewed with the patient. 125am Discussed with Dr Chiu, hospitalist at [facility] in [place]. Accepts patient. Waiting for bed assignment. Will be able to transport with BLS, no current drips and can medicate pain prior to departure from [facility] <Gaviota Anderson MD - Last Filed: 08/23/24 05:41> Lab Data Labs: Lab Results 08/22/24 08/22/24 08/22/24 Range/Units 13:14 13:25 15:04 WBC 6.1 (4.5-11.0) X10^3/uL RBC 4.02 (4.0-5.2) X10^6/uL Hgb 13.7 (12.0-16.0) g/dL Hct 39.5 (36-46) % MCV 98.4 (80-100) fL MCH 34.1 H (26-34) PG MCHC 34.7 (30-36) % RDW 14.7 (11.6-14.8) % Plt Count 59 L (150-400) X10^3/uL Neut % (Auto) 73.0 (50-75) % Lymph % (Auto) 18.2 L (25-40) % [place] % (Auto) 7.3 (3-14) % Eos % (Auto) 0.4 L (2-4) % Baso % (Auto) 1.1 (0-2) % Neut # (Auto) 4500 (7276-7929) /uL Lymph # (Auto) 1100 (8618-6564) /uL [place] # (Auto) 400 (0-900) /uL Eos # (Auto) 0 (0-450) /uL Baso # (Auto) 100 (0-100) /uL PT 19.3 H (9.4-12.5) SECONDS INR 1.7 H (0.9-1.3) APTT 52 H (25.1-36.5) SECONDS Sodium 136 L (137-145) mmol/L Potassium 3.8 (3.4-5.1) mmol/L Chloride 103 (98-107) mmol/L Carbon Dioxide 20 L (22-32) mmol/L BUN 9 (7-17) mg/dL Creatinine 0.82 (0.52-1.04) mg/dL Estimated GFR > 60 (>60) mL/min BUN/Creatinine Ratio 11.0 (6-22) Glucose 101 (80-110) mg/dL Lactate 1.4 (0.7-2.1) mmol/L Calcium 10.4 H (8.4-10.2) mg/dL Total Bilirubin 9.9 H (0.2-1.3) mg/dL AST 91 H (14-36) IU/L ALT 36 H (<35) IU/L Alkaline Phosphatase 151 H (38-126) U/L Total Protein 8.7 H (6.3-8.2) g/dL Albumin 4.6 (3.5-5.0) g/dL Globulin 4.1 (1.7-4.1) g/dL Albumin/Globulin Ratio 1.1 (1.0-2.8) Lipase 95 (23-300) U/L Procalcitonin 0.075 (<0.5) ng/mL Ur Bilirubin Confirm Positive H (Negative) Urine RBC 1-5/hpf (0-5/HPF) Urine WBC 5-10/hpf H (0-5/HPF) Ur Squamous Epith Cells 5-10 /hpf H (0-5/HPF) Ur Transition Epith Cell 1-5/hpf (0-5/HPF) Amorphous Sediment 1+ Urine Bacteria Few (2-10) H (None) Urine Mucus 2+ H (Negative) Ur Culture Indicated? Specimen cultured Vol Urine Centrifuged 10ml (spun) Ethyl Alcohol < 10 ( - 10) mg/dL Chlamy pneumoniae PCR Not detected (Not Detect) Adenovirus (PCR) Not detected (Not Detect) B. pertussis DNA (PCR) Not detected (Not Detect) B.parapertussis DNA PCR Not detected (Not Detecte) Coronavirus OC43 (PCR) Not detected (Not Detect) Coronavirus HKU1 (PCR) Not detected (Not Detect) Coronavirus 229E (PCR) Not detected (Not Detect) SARS-CoV-2 (PCR) Not detected (Not Detecte) Coronavirus NL63 (PCR) Not detected (Not Detect) Human Metapneumovir PCR Not detected (Not Detect) Influenza Type A (PCR) Not detected (Not Detect) Influenza Type B (PCR) Not detected (Not Detect) M. pneumoniae (PCR) Not detected (Not Detect) Parainfluenza 1 (PCR) Not detected (Not Detect) Parainfluenza 2 (PCR) Not detected (Not Detect) Parainfluenza 3 (PCR) Not detected (Not Detect) Parainfluenza 4 (PCR) Not detected (Not Detect) RSV (PCR) Not detected (Not Detect) Entero/Rhino (PCR) Not detected (Not Detect) Point of care testing: Urine Dip Bedside Urine Glucose Negative Bedside Urine Bilirubin + 1 Bedside Urine Ketone ++ 40 Urine Specific [place] 1.010 Bedside Urine Occult Blood ++ Bedside Urine pH 7.5 Bedside Urine Protein + 30 Bedside Urine Urobilinogen 2+ 4mg Bedside Urine Nitrite - Negative Bedside Urine Leukocytes +++ 500 Esterase Imaging Data MRCP: Radiologist's Impression: PROCEDURE: MR ABDOMEN WO/W CON INDICATIONS: choledocolithiasis TECHNIQUE: Coronal HASTE, axial 2D FLASH in- and [id number]; axial breath-hold T2 FSE with fat saturation from the hepatic dome to the iliac crests. Oblique coronal thin- slice and radial thick slab HASTE through the biliary system. Dynamic axial VIBE during administration of contrast. Post-contrast coronal VIBE or 2D FLASH with fat saturation from the hepatic dome to the iliac crests. Optional diffusion weighted imaging and ADC may be performed. COMPARISON: [facility], CT, CT CHEST ABD PEL WO CON, 08/22/2024, 15:11. FINDINGS: Image quality: Protocol incomplete due to claustrophobia. Exam is also motion degraded Lower chest: Lung bases appear unremarkable Liver: Small perihepatic ascites. Moderate hepatic steatosis. Slightly nodular contour. Hepatomegaly. Gallbladder and biliary system: Distended gallbladder. Small gallstones. No biliary ductal dilation. There is a questionable filling defect however seen at the distal CBD (6/24). Pancreas: Mild parenchymal atrophy. No ductal dilation Spleen: Splenomegaly. Adrenals: No discrete nodules Kidneys: No solid mass. No hydronephrosis. Vessels and lymph nodes: No abdominal aortic aneurysm. No pathologic lymphadenopathy by size criteria. Bowel and peritoneum: No small bowel obstruction or pathologic ascites. Body wall: Moderate midline ventral hernia containing fat and omental vessels Bones: No aggressive appearing osseous abnormality. IMPRESSION: Distended gallbladder again seen with tiny gallstones. In the distal CBD, there is a questionable filling defect representing a tiny stone versus artifact. (Reference image 6/24) No ductal dilation however is seen. This exam is limited by motion and incomplete protocol. Hepatosplenomegaly. Slightly nodular hepatic contour. Steatosis. Trace perihepatic ascites Moderate midline ventral hernia containing fat and omental vessels. Other findings above. Dictated by: Erik Nicholas M.D. on 08/22/2024 at 19:58 [facility] Narrative Medical decision making narrative: Patient here with primary complaints of umbilical pain nausea and vomiting chills runny nose cough for the past 2 days. 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 Patient was seen here 5 years ago and transferred to [facility] and stayed there for paracentesis/hepatorenal syndrome. She does continue to drink. Last alcohol use was August 12. She did go to recent rehab in July. Patient has known history of reducible umbilical hernia. Patient in no distress at this time. No auditory or visual hallucinations. No seizures. No altered mental status. After history and exam, CBC CMP lipase urinalysis Dilaudid Zofran normal saline CT chest abdomen pelvis respiratory panel lactic acid procalcitonin PT INR PTT, request labs from last month at another facility [facility] Medical records reviewed: February 27, 2020 ER visit here. Found to have alcoholic cirrhosis with similar lab concerns at that time including a bilirubin of 22.4, AST of 141 ALT of 70 and alk-phos of 249. Laboratory studies from outside hospital July 11 2024 normal liver enzymes Differential considered: Includes but not limited to ascites peritonitis appendicitis cholecystitis cholelithiasis viral gastroenteritis colitis incarcerated hernia strangulated hernia gastritis Lab Test results independently reviewed as above. Pertinent findings: WBC 6.1 hemoglobin 13.7 hematocrit 39.5 INR 1.7 sodium 136 AST 91 ALT 36 total bilirubin 9.9 alkaline phosphatase 151 alcohol negative procalcitonin 0.075 lipase 95 lactate 1.4 Independently reviewed EKG normal sinus rhythm rate 99 Imaging studies independently reviewed: CT chest abdomen pelvis distended gallbladder/cholelithiasis MRCP shows In the distal CBD, there is a questionable filling defect representing a tiny stone versus artifact. (Reference image 10/28) No ductal dilation however is seen.This exam is limited by motion and incomplete protocol. Consultations: Bed available at [facility] in [place] (no bed availalbity in any hospitals from [place] to [place]) Re-evaluations: 6:10 p.m.. Updated patient results. Waiting for ultrasound to evaluate gallbladder and liver. Pain is controlled. Discussion: 6:[address] Villatoro: Sign out to Dr. Doshi, review with General surgery after results as patient's liver enzymes are elevated compared to 1 month ago. It was normal 1 month ago. 64-year-old woman with a history of alcohol use disorder and liver failure. Presents with upper abdominal pain radiating through to her back. Prior episode most similar to this was in 2019, eventually transferred to [facility] where she spent 10 days with alcohol withdrawal symptoms, hepatorenal syndrome and it sounds like she had a paracentesis. I do not have records from this. She was discharged home with ?a bunch of medications? did not drive for 2 years and seemingly improved. She has not had any alcohol since July of this year. Labs today are concerning for bilirubin elevated at 9.9, AST at 91, ALT at 36 alk-phos at 1:51 a.m.. Comparison to hospitalization February of 2020, bilirubin at that time was 22.4 and AST ALT and alk-phos were all slightly higher than they are today. She is not having any confounding renal failure with today's events CT scan from today suggests possible proctocolitis no small bowel obstruction no drainable abscesses or ascites. Nonspecific edema extends through the retroperitoneum without abscess. Distended gallbladder and small gallstones. MRCP was obtained and there is a questionable filling deficit that may be a stone blocking the common bile duct but no significant ductal dilatation is appreciated. Patient is re-evaluated: She continues to have pain in the right upper quadrant radiating through to her back, she has been rehydrated but her nausea is returning. She is not having fevers, no leukocytosis and not showing signs of sepsis or secondary bacterial infection With concerns for choledocholithiasis and common duct obstruction, I believe transfer to a facility with ERCP capacity is going to be most appropriate. Have began looking for facilities as that is not going to be an option for [facility]. Findings, concerns, recommendations and the probability of transfer is reviewed with the patient. 125am Discussed with Dr Chiu, hospitalist at [facility] in [place]. Accepts patient. Waiting for bed assignment. Will be able to transport with BLS, no current drips and can medicate pain prior to departure from [place] [facility] Discharge Plan Departure Patient Disposition: [facility] Clinical Impression: Choledocholithiasis with obstruction Qualifiers: Cholecystitis presence: without cholecystitis Qualified Code(s): K80.51 - Calculus of bile duct without cholangitis or cholecystitis with obstruction Prescriptions: No Action No Known Home Medications Referrals: Taye Monson MD [Primary Care Provider] -
[2024-08-22] MEDS: SODIUM CHLORIDE 0.9% 500 ML 1000 ML IV (14:36)
[2024-08-22] MEDS: HYDROMORPHONE 1 MG INJ IV (14:36)
[2024-08-22] MEDS: ONDANSETRON 4 MG/2 ML INJ IV ×2 (14:37→18:44)
[2024-08-22 14:46] LABS: INR 1.7 (0.9-1.3); Prothrombin Time 19.3 SECONDS (9.4-12.5)
[2024-08-22 14:49] LABS: Lactate (Lactic Acid) 1.4 mmol/L (0.7-2.1); PTT Partial Thromboplastin Tim 52 SECONDS (25.1-36.5)
[2024-08-22 14:50] LABS: Ethanol (ETOH) < 10 mg/dL
--- NOTE | 2024-08-22 14:52 | DI.CT.S_ITS ---
PROCEDURE: CT CHEST ABD PEL WO CON INDICATIONS: sepsis TECHNIQUE: After the administration of oral contrast, 5 mm thick sections acquired from the lung apices to the symphysis pubis. 5 mm thick coronal and sagittal reformats acquired, with additional 7 mm coronal MIP reformats through the lungs. For radiation dose reduction, the following was used: automated exposure control, adjustment of mA and/or kV according to patient size. COMPARISON: [facility], CT, CT ABDOMEN PELVIS WO CON, 02/27/2020, 17:14. [facility], CR, XR CHEST 1V, 02/27/2020, 18:40. FINDINGS: Image quality: Diagnostic Lungs and pleura: 1.2 cm ground-glass nodule is seen in the left upper lung. No definite solid component. No dense airspace consolidation or pleural effusion. Partially solid and partially sclerotic glass nodule also seen in the right lateral lung (5/128) measuring up to 1.6 cm. Background emphysema. Mediastinum, heart, and esophagus: Mild distal esophageal wall thickening, nonspecific. Heart size is at the upper limit of normal. Coronary calcifications. No pathologic lymphadenopathy by size criteria. Chest wall and thyroid: Unremarkable Liver: Hepatic steatosis. Nodular contour. Trace perihepatic ascites Hepatomegaly at 20 cm. Solid organs are poorly evaluated without IV contrast Gallbladder and biliary system: Distended gallbladder with small gallstones. No pathologic biliary dilation. Pancreas: No ductal dilation. [id number] parenchymal atrophy. Spleen: Enlarged at 14 cm Adrenals: No discrete nodules Kidneys: No solid mass. No hydronephrosis. Vessels and lymph nodes: No abdominal aortic aneurysm. Atherosclerotic calcifications are present. No pathologic lymphadenopathy by size criteria. There is nonspecific edematous fat stranding throughout the retroperitoneum. Bowel and peritoneum: Overall liquid colonic contents and rectal contents. Colonic diverticulosis. No small bowel obstruction. Nondilated appendix. Edematous fat stranding is also seen in the right paracolic gutter. No drainable ascites or abscess. Body wall: Moderate fat and omentum containing umbilical hernia. Pelvis: Bladder is unremarkable. Reproductive organs are unremarkable on limited CT evaluation. Bones: No aggressive appearing osseous abnormality. IMPRESSION: Suspected proctocolitis, with liquid colonic contents and edema particularly surrounding the proximal colon. No small bowel obstruction. No drainable abscess or ascites. Nonspecific edema also extends throughout the retroperitoneum, without abscess. Distended gallbladder and small gallstones. Small partially solid and partially ground-glass nodule seen in both lungs, without dense airspace disease or pleural effusion. These may be infectious/inflammatory. Background emphysema. Given patient's presumed risk factors, consider 6-[address] Hepatosplenomegaly and nodular liver contour compatible with chronic liver disease. Consider HCC screening if clinically applicable. Trace perihepatic ascites. Other findings above on this noncontrast CT. Dictated by: Erik Nicholas M.D. on 08/22/2024 at 15:34 Approved by: Erik Nicholas M.D. on 08/22/2024 at 15:41
[2024-08-22 15:07] LABS: Procalcitonin 0.075 ng/mL (<0.5)
[2024-08-22 16:03] LABS: Adenovirus Not Detected (Not Detect); B. parapertussis Not Detected (Not Detecte); Bordetella pertussis Not Detected (Not Detect); Chlamydophila pneumoniae Not Detected (Not Detect); Coronavirus 229E Not Detected (Not Detect); Coronavirus HKU1 Not Detected (Not Detect); Coronavirus NL 63 Not Detected (Not Detect); Coronavirus OC43 Not Detected (Not Detect); Human Metapneumovirus Not Detected (Not Detect); Human Rhinovirus/Enterovirus Not Detected (Not Detect); Influenza A Not Detected (Not Detect); Influenza B Not Detected (Not Detect); Mycoplasma pneumoniae Not Detected (Not Detect); Parainfluenza Virus 1 Not Detected (Not Detect); Parainfluenza Virus 2 Not Detected (Not Detect); Parainfluenza Virus 3 Not Detected (Not Detect); Parainfluenza Virus 4 Not Detected (Not Detect); Respiratory Syncytial Virus Not Detected (Not Detect); SARS- CoV-2 Not Detected (Not Detecte)
--- NOTE | 2024-08-22 18:23 | DI.MRI.S_ITS ---
PROCEDURE: MR ABDOMEN WO/W CON INDICATIONS: choledocolithiasis TECHNIQUE: Coronal HASTE, axial 2D FLASH in- and [id number]; axial breath-hold T2 FSE with fat saturation from the hepatic dome to the iliac crests. Oblique coronal thin-slice and radial thick slab HASTE through the biliary system. Dynamic axial VIBE during administration of contrast. Post-contrast coronal VIBE or 2D FLASH with fat saturation from the hepatic dome to the iliac crests. Optional diffusion weighted imaging and ADC may be performed. COMPARISON: [facility], CT, CT CHEST ABD PEL WO CON, 08/22/2024, 15:11. FINDINGS: Image quality: Protocol incomplete due to claustrophobia. Exam is also motion degraded Lower chest: Lung bases appear unremarkable Liver: Small perihepatic ascites. Moderate hepatic steatosis. Slightly nodular contour. Hepatomegaly. Gallbladder and biliary system: Distended gallbladder. Small gallstones. No biliary ductal dilation. There is a questionable filling defect however seen at the distal CBD (10/28). Pancreas: Mild parenchymal atrophy. No ductal dilation Spleen: Splenomegaly. Adrenals: No discrete nodules Kidneys: No solid mass. No hydronephrosis. Vessels and lymph nodes: No abdominal aortic aneurysm. No pathologic lymphadenopathy by size criteria. Bowel and peritoneum: No small bowel obstruction or pathologic ascites. Body wall: Moderate midline ventral hernia containing fat and omental vessels Bones: No aggressive appearing osseous abnormality. IMPRESSION: Distended gallbladder again seen with tiny gallstones. In the distal CBD, there is a questionable filling defect representing a tiny stone versus artifact. (Reference image 10/28) No ductal dilation however is seen. This exam is limited by motion and incomplete protocol. Hepatosplenomegaly. Slightly nodular hepatic contour. Steatosis. Trace perihepatic ascites Moderate midline ventral hernia containing fat and omental vessels. Other findings above. Dictated by: Erik Nicholas M.D. on 08/22/2024 at 19:58 Approved by: Erik Nicholas M.D. on 08/22/2024 at 20:05
[2024-08-23] VITALS (15 sets, daily range): BP systolic 144–171; BP diastolic 69–89; PULSE 90–98; RESP 13–23; TEMP 36.8; O2SAT 94–98
[2024-08-23] MEDS: HYDROMORPHONE 0.5 MG INJ IV ×2 (00:37→06:45)
[2024-08-23] MEDS: ONDANSETRON 4 MG/2 ML INJ IV ×2 (02:58→06:45)
--- NOTE | 2024-08-23 06:55 | PC.NURSE ---
[facility] Report given, questions answered.
== END 2024-08-23 07:00 | disposition short-term general hospital (02) ==
PROVIDERS: Emergency Medicine; Emergency Provider Emergency Medicine; PCP Family Medicine
DX: K80.51 Calculus of bile duct without cholangitis or cholecystitis with obstruction (principal); R11.0 Nausea
CPT/HCPCS: 36415; 71250; 74176; 74183; 80053; 80320; 81003; 81015; 83605; 83690; 84145; 85025; 85610; 85730; 87086; 87633; 93005; 96361; 96374; 96375; 96376; 99284; A9579; J1171; J2405